=== PATIENT | male | born 2005 | race Caucasian/White ===

== ENCOUNTER 2024-07-18 20:15 | Emergency (ER) | payer BC ==
[~2024-07-18] VITALS: Ht 193 cm; Wt 91.8 kg
[2024-07-18 20:26] VITALS: BP 148/96; TEMP 98.4
[2024-07-18 21:52] VITALS: PULSE 68
== END 2024-07-18 21:52 | disposition home or self-care (01) ==
LOC: COL.ER 20:15
DX: S69.92XA Unspecified injury of left wrist, hand and finger(s), initial encounter (principal)

== ENCOUNTER 2024-09-14 16:38 | Emergency (ER) | payer BC ==
[~2024-09-14] VITALS: Ht 182.9 cm; Wt 93.2 kg
[2024-09-14 16:45] VITALS: BP 161/88; TEMP 98.8
[2024-09-14 18:08] VITALS: PULSE 76
== END 2024-09-14 18:08 | disposition home or self-care (01) ==
LOC: COL.ER 16:38
DX: S93.401A Sprain of unspecified ligament of right ankle, initial encounter (principal); W50.0XXA Accidental hit or strike by another person, initial encounter; Y93.39 Activity, other involving climbing, rappelling and jumping off